=== PATIENT | male | born 2000 | race African-American/Black ===

== ENCOUNTER 2022-02-21 20:30 | Emergency (ER) | payer OTHER ==
[~2022-02-21] VITALS: Ht 165.1 cm; Wt 79.5 kg
[2022-02-21] MEDS ORDERED: PERTUSS(ACELL),DIPH,TET VAC/PF 0.5 ML SYRINGE IM. ONE (21:15)
[2022-02-21] MEDS ORDERED: BACITRACIN 0.9 GM PACKET OINTMENT TP ONE (21:15)
[2022-02-21] MEDS ORDERED: AMOX TR/POT CLAV 875 MG/125 MG TABLET PO ONE (21:15)
[2022-02-21] MEDS ORDERED: AMOX1TAB16 PO ×2 (21:41→21:46)
[2022-02-21] MEDS ORDERED: BACI28OI29 TP (21:46)
[2022-02-21 22:28] VITALS: BP 137/72
== END 2022-02-21 22:30 | disposition home or self-care (01) ==
LOC: EMS 20:30
DX: S31.159A Open bite of abdominal wall, unspecified quadrant without penetration into peritoneal cavity, initial encounter (principal); S61.052A Open bite of left thumb without damage to nail, initial encounter; S61.251A Open bite of left index finger without damage to nail, initial encounter; W54.0XXA Bitten by dog, initial encounter; Y93.89 Activity, other specified; Y92.89 Other specified places as the place of occurrence of the external cause; Y99.8 Other external cause status
CPT/HCPCS: 90471; 90715; 99283